=== PATIENT | female | born 1975 | race Caucasian/White ===

== ENCOUNTER 2018-01-25 11:32 | Outpatient (CLI) | payer OTHER ==
[~2018-01-25 11:32] MED LIST: CLON0.5T4 PO; DESV50TA PO; VALA500T PO
== END 2018-01-25 23:59 | disposition home or self-care (01) ==
LOC: RAD 11:32
PROVIDERS: ATTEND Physician Assistant Surgical
DX: M75.32 Calcific tendinitis of left shoulder (principal)
CPT/HCPCS: 73030

== ENCOUNTER 2018-01-27 10:22 | Outpatient (CLI) | payer OTHER | END 2018-01-27 23:59 | disposition home or self-care (01) | LOC: RAD 10:22 | PROVIDERS: ATTEND Physician Assistant Surgical | DX: M25.512 Pain in left shoulder (principal) | CPT/HCPCS: 73221 ==